=== PATIENT | female | born 1975 | race African-American/Black ===

== ENCOUNTER 2020-09-28 01:16 | Emergency (ER) | payer OTHER ==
[2020-09-28 01:55] VITALS: PULSE 79; TEMP 98; BMI 35.6
[2020-09-28] MEDS ORDERED: ACETAMINOPHEN 325 MG TABLET (FP) PO ONE (01:59)
[2020-09-28] MEDS ORDERED: IBUPROFEN 600 MG TABLET (FP) PO ONE ×2 (01:59→02:09)
[2020-09-28] MEDS ORDERED: ACETAMINOPHEN 325 MG TABLET (FP) ONE (02:09)
[2020-09-28 03:26] VITALS: BP 125/75
== END 2020-09-28 02:35 | disposition home or self-care (01) ==
LOC: JER 01:16
DX: M25.561 Pain in right knee (principal); G89.29 Other chronic pain
CPT/HCPCS: 99284-25

== ENCOUNTER 2023-10-23 15:28 | Emergency (ER) | payer OTHER ==
[2023-10-23 16:03] VITALS: BP 137/72; PULSE 86; RESP 18; TEMP 98; BMI 35.6
[2023-10-23] MEDS ORDERED: KETOROLAC TROMETHAMINE 30 MG/1 ML VIAL IM ONE (17:40)
[2023-10-23] MEDS ORDERED: KETOROLAC TROMETHAMINE 30 MG/1 ML VIAL ONE (18:41)
== END 2023-10-23 19:10 | disposition home or self-care (01) ==
LOC: JER 15:28
PROC: 3E0233Z Introduction of Anti-inflammatory into Muscle, Percutaneous Approach (ICD-10-PCS; principal; 2023-10-23)
DX: M25.561 Pain in right knee (principal); Y04.0XXA Assault by unarmed brawl or fight, initial encounter
CPT/HCPCS: 73562-TC-RT-FY; 99284-25